=== PATIENT | female | born 1980 | race American Indian/Alaskan Native ===

== ENCOUNTER 2016-10-25 07:57 | Emergency (ER) | payer OTHER ==
[2016-10-25 08:38] LABS: Basophils % (Auto) 0.6 % (0.0-1.8); Hematocrit 35.7 % (30.3-42.9); Hemoglobin 11.9 gm/dl (10.1-14.3); Mean Corpuscular HGB Conc 33 % (30-34); Mean Corpuscular Hemoglobin 29 pg (28-32); Mean Corpuscular Volume 86 fl (79-97); Platelet Count 279 K/mm3 (140-440); Red Blood Count 4.18 M/mm3 (3.65-5.03); Red Cell Distribution Width 13.9 % (13.2-15.2)
[2016-10-25 09:00] LABS: Alanine Aminotransferase 15 units/L (7-56); Albumin 3.4 g/dL (3.9-5); Albumin/Globulin Ratio 0.9 %; Alkaline Phosphatase 59 units/L (35-129); Anion Gap 16 mmol/L; Blood Urea Nitrogen 8 mg/dL (7-17); Carbon Dioxide 20 mmol/L (22-30); Chloride 104.2 mmol/L (98-107); Glucose 98 mg/dL (65-100); Lipase 18 units/L (13-60); Potassium 4.3 mmol/L (3.6-5.0); Sodium 136 mmol/L (137-145); Total Protein 7.2 g/dL (6.3-8.2)
--- NOTE | 2016-10-25 09:01 | Emergency Department Report ---
HPI - General Chief Complaint: Abdominal Pain Time Seen by Provider: 10/25/16 08:49 - HPI HPI: This is a 36-year-old -[place] female who presents to the emergency department, driving herself in to be seen, with complaint of a 3 day history of lower abdominal discomfort as well as some in the left upper quadrant. She says it feels like she is "been doing sit ups" but she has not been doing so. It is a sore feeling that is 5 out of 10 in intensity. It is relatively constant but it worsens with exertion. She denies any nausea, vomiting, fever, dysuria, vaginal bleeding, vaginal discharge, back pain. No recent travel or sick contacts at home. She tried some Aleve for her discomfort without any relief. Her primary care physician is Dr. Jonah Rojas but she has not seen them regarding her symptoms. ED Past Medical Hx - Past Medical History Previous Medical History?: Yes Additional medical history: fibroids - Surgical History Past Surgical History?: Yes Hx Breast Surgery: Yes (Reduction) Additional Surgical History: Uterine fibroids removed - Social History Smoking Status: Current Some Day Smoker Substance Use Type: Alcohol, Non Opiate Pain - Medications Home Medications: Home Medications Medication Instructions Recorded Confirmed Last Taken Type HYDROcodone/APAP 5-325 [Elwell 1 each PO Q6HR PRN #10 tablet 10/25/16 Unknown Rx 5/325] ED Review of Systems ROS: Stated complaint: ABD PAIN Other details as noted in HPI Comment: All other systems reviewed and negative Constitutional: denies: chills, fever Eyes: denies: eye pain, eye discharge, vision change ENT: denies: ear pain, throat pain Respiratory: denies: cough, shortness of breath, wheezing Cardiovascular: denies: chest pain, palpitations Gastrointestinal: abdominal pain. denies: nausea, vomiting Genitourinary: denies: urgency, dysuria, discharge Musculoskeletal: denies: back pain, joint swelling, arthralgia Skin: denies: rash, lesions Neurological: denies: headache, weakness, paresthesias Physical Exam - Physical Exam Vital Signs: Vital Signs 10/25/16 10/25/16 08:02 08:39 Temperature 98.9 F Pulse Rate 95 H 92 H Respiratory 20 20 Rate Blood Pressure 136/88 Blood Pressure 124/72 [Right] O2 Sat by Pulse 99 99 Oximetry Physical Exam: GENERAL: The patient is well-developed well-nourished. HEENT: Normocephalic. Atraumatic. Extraocular motions are intact. Patient has moist mucous membranes. Pupils equal reactive to light bilaterally. NECK: Supple. Trachea is midline. CHEST/LUNGS: Clear to auscultation. There is no respiratory distress noted. HEART/CARDIOVASCULAR: Regular. There is no tachycardia. There is no gallop rub or murmur. ABDOMEN: Abdomen is soft. There is some tenderness to palpation to the lower quadrants of the abdomen and the left upper quadrant. No guarding rebound tenderness. No peritoneal signs. Patient has normal bowel sounds. There is no abdominal distention. SKIN: Skin is warm and dry. NEURO: The patient is awake, alert, and oriented. The patient is cooperative. The patient has no focal neurologic deficits. The patient has normal speech. MUSCULOSKELETAL: There is no tenderness or deformity. There is no limitation range of motion. There is no evidence of acute injury. ED Course Vital Signs 10/25/16 10/25/16 08:02 08:39 Temperature 98.9 F Pulse Rate 95 H 92 H Respiratory 20 20 Rate Blood Pressure 136/88 Blood Pressure 124/72 [Right] O2 Sat by Pulse 99 99 Oximetry ED Medical Decision Making - Lab Data Result diagrams: 10/25/16 08:26 10/25/16 08:26 - Radiology Data Radiology results: report reviewed, image reviewed interpreted by me: Abdominal x-ray does not show any acute process. Abdominal ultrasound does not show any acute process. It is considered a normal examination. ULTRASOUND PELVIS DUPLEX DOPPLER COMPLETE ULTRASOUND TRANSVAGINAL HISTORY: Pelvic pain. TECHNIQUE: Transabdominal and transvaginal ultrasound with color and spectral doppler interrogation. The uterus measures 7 x 4 x 5 cm. A small hypoechoic subserosal fibroid is noted in the posterior wall measuring 1.5 cm. The endometrial stripe is normal measuring 10 mm. There are 2 complex cysts in the right ovary measuring 3.0 and 4.3 cm. Fine internal septae are identified. No internal flow, fat echogenicity or calcifications. These are highly suggestive of hemorrhagic cysts. The left ovary is unremarkable. Spectral Doppler demonstrates arterial flow to both adnexa. IMPRESSION: Complex right ovarian cysts most consistent with hemorrhagic cysts. Small uterine fibroid. - Medical Decision Making 36-year-old female presents with a few days of lower abdominal discomfort as well as some left middle to upper abdominal discomfort. There is no nausea, vomiting, vaginal bleeding or discharge, dysuria or any other associated symptoms. Her labs are unremarkable including normal belly labs. No leukocytosis. There is no urinary tract infection and the patient is not . Abdominal x-ray did not show any acute process. Abdominal ultrasound was a normal examination. The pelvic ultrasound shows a complex right ovarian cyst that is consistent with a hemorrhagic cyst as well as a small uterine fibroid. This may be the cause of her lower abdominal discomfort but probably not for the left upper quadrant. However the patient is feeling improved after a single pain pill and has normal vitals and labs and therefore a CT of the abdomen and pelvis does not appear necessary at this time. She will follow-up with her primary care doctor and [facility] will return to the ER with any worsening of her symptoms or any acute distress. She understands and agrees to plan. - Differential Diagnosis fibroids, , pancreatitis, ovarian cyst, ovarian torsion Critical Care Time: No Critical care attestation.: If time is entered above; I have spent that time in minutes in the direct care of this critically ill patient, excluding procedure time. ED Disposition Clinical Impression: Ovarian cyst Abdominal pain Qualifiers: Abdominal location: lower abdomen, unspecified Qualified Code(s): R10.30 - Lower abdominal pain, unspecified Fibroid Qualifiers: Uterine leiomyoma location: unspecified location Qualified Code(s): D25.9 - Leiomyoma of uterus, unspecified Disposition: DC-01 TO HOME OR SELFCARE Is pt being admited?: No Does the pt Need Aspirin: No Condition: Stable Instructions: Ovarian Cyst (ED), Abdominal Pain (ED) Additional Instructions: Please follow-up with your primary care physician and an [facility] in next few days. Return to the emergency department with any worsening of your symptoms or any acute distress. You've been prescribed a medication that is sedating. Therefore this medication cannot be mixed with alcohol, or taken prior to driving, working, or being responsible for children. Prescriptions: HYDROcodone/APAP 5-325 [Elwell 5/325] 1 each PO Q6HR PRN #10 tablet PRN Reason: Pain Referrals: PRIMARY CAREMD [Primary Care Provider] - 3-5 Days [facility] [Provider Group] - 3-5 Days [facility] [Provider Group] - 3-5 Days Time of Disposition: 11:32
[2016-10-25] MEDS ORDERED: PERCOCET 5/325 PO ONE (09:02)
[2016-10-25 09:04] LABS: Bacteria,Urine 4+ /HPF (Negative); Bilirubin,Urine NEG (Negative); Blood,Urine NEG (Negative); Ketones,Urine NEG (Negative); Leukocyte Esterase,Urine TR (Negative); Mucus,Urine FEW /HPF; Nitrite,Urine POS (Negative); Protein,Urine <15 mg/dL mg/dL (Negative); Urobilinogen,Urine < 2.0 mg/dL (<2.0)
--- NOTE | 2016-10-25 09:58 | XRay Report ---
ABDOMEN, 2 views: History: Abdominal pain. There is no evidence of free air beneath the diaphragms. The gas pattern within the abdomen is unremarkable. There is no evidence of bowel dilatation, significant air-fluid levels, or pathologic calcifications. Organ shadows are unremarkable. IMPRESSION: Unremarkable abdomen.
[2016-10-25 11:22] VITALS: BP 124/74
--- NOTE | 2016-10-25 11:25 | Ultrasound Report ---
RIGHT UPPER QUADRANT ULTRASOUND: HISTORY: Right upper quadrant abdominal pain. Technique: Transabdominal ultrasound imaging with Doppler interrogation. FINDINGS: The gallbladder is sonolucent with no evidence of stones, polyps or wall thickening. The common duct is normal in caliber. Images of the liver parenchyma, pancreas, right kidney and aorta are within normal limits. No perihepatic ascites. IMPRESSION: Unremarkable right upper quadrant ultrasound.
--- NOTE | 2016-10-25 11:27 | Ultrasound Report ---
ULTRASOUND PELVIS DUPLEX DOPPLER COMPLETE ULTRASOUND TRANSVAGINAL HISTORY: Pelvic pain. TECHNIQUE: Transabdominal and transvaginal ultrasound with color and spectral doppler interrogation. The uterus measures 7 x 4 x 5 cm. A small hypoechoic subserosal fibroid is noted in the posterior wall measuring 1.5 cm. The endometrial stripe is normal measuring 10 mm. There are 2 complex cysts in the right ovary measuring 3.0 and 4.3 cm. Fine internal septae are identified. No internal flow, fat echogenicity or calcifications. These are highly suggestive of hemorrhagic cysts. The left ovary is unremarkable. Spectral Doppler demonstrates arterial flow to both adnexa. IMPRESSION: Complex right ovarian cysts most consistent with hemorrhagic cysts. Small uterine fibroid.
== END 2016-10-25 11:38 | disposition home or self-care (01) ==
LOC: ED 07:57
DX: N83.209 Unspecified ovarian cyst, unspecified side (principal); D25.9 Leiomyoma of uterus, unspecified; R10.30 Lower abdominal pain, unspecified; Z72.0 Tobacco use
CPT/HCPCS: 36415; 74020; 76705; 76830; 80053; 81001; 81025; 83690; 85025; 93975